=== PATIENT | female | born 1975 | race African-American/Black ===

== ENCOUNTER 2017-04-07 04:46 | Emergency (ER) | payer OTHER ==
[2017-04-07] MEDS ORDERED: ASPIRIN ONE (04:57)
[2017-04-07] MEDS ORDERED: ASPIRIN PO ONE (04:57)
[2017-04-07 04:59] VITALS: BMI 44.9
[2017-04-07] MEDS ORDERED: LOPRESSOR TAB 50 MG ONE (05:15)
[2017-04-07] MEDS ORDERED: LOPRESSOR TAB 25 MG PO ONE (05:17)
--- NOTE | 2017-04-07 05:21 | RAD ---
Chest, AP portable Indication: Chest pain Comparison: None Findings: Cardiac silhouette size is normal. There has been previous median sternotomy and CABG. AICD is noted. The lungs are essentially clear without overt edema, focal infiltrates, or large effusion. Impression: No acute chest process. Reported By:
--- NOTE | 2017-04-07 05:21 | DR.GENAD ---
HPI - PCP Primary Care Physician: HELLEN - Complaint/Symptoms Chief Complaint Doctors Comments: Chest pain while asleep. This was pressure type with radiation to the neck/L. shoulder. There was nausea, no diaphoresis. Initially, this was rated as a 9/10. She had taken S/L NTG x 2 at home. Currently rates C/P as a 6/10. Her previous cardiology w/u includes a stress test, cardiac cath and she is s/p CABG. Chief Complaint:: "MY CHEST STARTED HURTING AROUND 12 TONIGHT AND IT HASN'T GONE AWAY" Self Treatment fo Chief Complaint: 2 NITRO SUBLING - Nurses notes reviewed Nurses Notes Review: Yes - Source History Provided: Patient - Mode of Arrival Mode of Arrival: Wheelchair - Timing Onset of Chief Complaint: 04/07/17 Came on: Gradually - Modifying Factors Worsens:: none Improves:: none PMH - PMH Past Medical History: Yes Past Medical History: Angina, Coronary Artery Disease, Hypertension Past Surgical History: Yes Surgical History: CABG/Valve Surgery, Hysterectomy Past Surgical History Comment: PACEMAKER/DIFIB - Family History History of Family Medical Conditions: Yes Family Medical History: Diabetes Mellitus, Cancer, [place], Coronary Artery Disease, Heart Failure, Sudden Cardiac , Hypertension - Social History Does patient currently use any type of tobacco product: Yes Have you used tobacco products in the last 12 months: Yes Type of Tobacco Use: Cigarettes Does any household member use tobacco: No Alcohol Use: None Do you use any recreational Drugs:: No Lives With: Spouse Lives Where: Home - infectious screening In the last 2 months have you had wt loss of >10#?: NO Have you had fever, night sweats or hemotysis?: No Have you traveled outside the country in the last 6 months?: No Isolation: Standard ROS - Review of Systems Constitutional: No Symptoms Reported Eyes: No Symptoms Reported ENTM: No Symptoms Reported Respiratoy: No Symptoms Reported Cardiovascular: Chest Pain Gastrointestinal/Abdominal: Nausea Genitourinary: No Symptoms Reported Neurological: No Symptoms Reported Musculoskeletal: No Symptoms Reported Integumentary: No Symptoms Reported Hematologic/Lymphatic: No Symptoms Reported Endocrine: No Symptoms Reported Psychiatric: No Symptoms Reported All Other Systems: Reviewed and Negative PE - Vital Signs Vitals: Temperature 98.1 F Pulse Rate [Left Brachial] 61 Pulse Rate 69 Respiratory Rate 21 Blood Pressure [Left Arm] 137/70 Blood Pressure 139/68 O2 Sat by Pulse Oximetry 96 - General Limitations: No Limitations General Appearance: Alert, In No Apparent Distress - Head Head Exam: Normal Inspection, Atraumatic - Eyes Eye exam: Normal Appearance, PERRL, EOMI - ENT ENT Exam: Normal Exam, Normal Oropharynx, Normal External Ear Exam, Mucous Membranes Moist, TM's Normal Bilaterally - Neck Neck Exam: Normal Inspection, Full ROM, Trachea Midline - Chest Chest Inspection: Normal Inspection, Symmetric Chest Wall Rise - Respiratory Respiratory Exam: Normal Lung Sounds Bilat - Cardiovascular Cardiovascular Exam: Regular Rate, Normal Rhythm, +S1, +S2 - Abdominal Exam Abdominal Exam: Normal Inspection, Normal Bowel Sounds, Soft - Extremities Extremities Exam: Normal Inspection, Full ROM - Back Back Exam: Normal Inspection - Neurologic Neurological Exam: Alert, Oriented X3, CN II-XII Intact - Psychiatric Psychiatric Exam: Normal Affect, Normal Mood - Skin Skin Exam: Warm, Dry, Intact, Normal Color Course - Reevaluation 1st: Unchanged 2nd: Unchanged - Education/Counseling Education/Counseling: Patient, Family, Education Educated On: Treatment, Diagnosis, Prognosis, Needs for Follow Up ROR - Labs Reviewed Result Diagrams: 04/07/17 05:09 04/07/17 05:09 Laboratory: WBC 10.9 X10^3/uL (3.6-10.0) H 04/07/17 05:09 RBC 3.90 X10^6/uL (3.5-5.4) 04/07/17 05:09 Hgb 12.7 g/dL (12.0-16.0) 04/07/17 05:09 Hct 37.0 % (36.0-47.0) 04/07/17 05:09 MCV 94.8 fL (80.0-100.0) 04/07/17 05:09 MCH 32.5 pg (27.0-34.0) 04/07/17 05:09 MCHC 34.3 g/dL (33.0-35.0) 04/07/17 05:09 RDW 12.5 % (11.6-16.5) 04/07/17 05:09 Plt Count 182 X10^3/uL (150.0-450.0) 04/07/17 05:09 MPV 9.7 fL (7.4-11.0) 04/07/17 05:09 Neut % 52.1 % (42.0-75.0) 04/07/17 05:09 Lymph % 40.6 % (21.0-51.0) 04/07/17 05:09 [place] % 4.3 % (0.0-13.0) 04/07/17 05:09 Eos % 2.6 % (0.9-2.9) 04/07/17 05:09 Baso % 0.4 % (0.2-1.0) 04/07/17 05:09 Neut # 5.7 x10^3/uL (2.2-4.8) H 04/07/17 05:09 Lymph # 4.4 X10^3/uL (1.3-2.9) H 04/07/17 05:09 Frontier # 0.5 x10^3/uL (0.3-0.8) 04/07/17 05:09 Eos # 0.3 x10^3/uL (0.0-0.2) H 04/07/17 05:09 Baso # 0.0 X10^3/uL (0.0-0.1) 04/07/17 05:09 Absolute Nucleated RBC 0.1 /100WBC 04/07/17 05:09 INR Target Range - 04/07/17 05:09 INR 1.00 (0.8-1.3) 04/07/17 05:09 PTT 25.8 SECONDS (22.9-36.5) 04/07/17 05:09 PTT Comment - 04/07/17 05:09 D-Dimer < 100 ng/mL (0-400) 04/07/17 05:09 Sodium 142 mmol/L (136-145) 04/07/17 05:09 Corrected Sodium 142 mmol/L (136-145) 04/07/17 05:09 Potassium 3.4 mmol/L (3.5-5.1) L 04/07/17 05:09 Chloride 107 mmol/L (98-107) 04/07/17 05:09 Carbon Dioxide 27.2 mmol/L (21-32) 04/07/17 05:09 BUN 7 mg/dL (7-18) 04/07/17 05:09 Creatinine 0.84 mg/dL (0.55-1.02) 04/07/17 05:09 Est GFR (MDRD) Af Amer > 60 (>60) 04/07/17 05:09 Est GFR (MDRD) Non-Af > 60 (>60) 04/07/17 05:09 Glucose 118 mg/dL (65-99) H 04/07/17 05:09 Calcium 8.3 mg/dL (8.5-10.1) L 04/07/17 05:09 Corrected Calcium 8.9 mg/dL (8.5-10.1) 04/07/17 05:09 Total Bilirubin 0.20 mg/dL (0.2-1.0) 04/07/17 05:09 AST 21 Units/L (15-37) 04/07/17 05:09 ALT 24 Units/L (12-78) 04/07/17 05:09 Alkaline Phosphatase 58 Units/L (46-116) 04/07/17 05:09 Creatine Kinase 500 Units/L (26-192) H 04/07/17 05:09 CK-MB (CK-2) 1.9 ng/mL (0-4.0) 04/07/17 05:09 CK/CKMB % Calc 0.4 % (<4) 04/07/17 05:09 Troponin I < 0.02 ng/mL (0-1.5) 04/07/17 05:09 Total Protein 7.0 g/dL (6.4-8.2) 04/07/17 05:09 Albumin 3.2 g/dL (3.4-5.0) L 04/07/17 05:09 Globulin 3.8 g/dL (2.5-4.5) 04/07/17 05:09 Albumin/Globulin Ratio 0.8 Ratio (1.1-2.1) L 04/07/17 05:09 Triglycerides 48 mg/dL (0-150) 04/07/17 05:09 Cholesterol 188 mg/dL (0-200) 04/07/17 05:09 LDL Cholesterol, Calc 133 mg/dL (0-100) H 04/07/17 05:09 HDL Cholesterol 45 mg/dL (40-60) 04/07/17 05:09 Cholesterol/HDL Ratio 4.2 (0.0-5.0) 04/07/17 05:09 - XRAY XRAY Interpreted by: Self XRAY Findings: NAD - EKG Rate: 72 [place]: Normal Rhythm: NSR Block: None Hypertrophy: LVH ST: Normal - Diagnosis Discharge Problem: Chest pain - Discharge Plan Condition: Stable - Follow ups/Referrals Follow ups/Referrals: JAY MACEDO [Primary Care Provider] - 3 days - Instructions
[2017-04-07 05:23] LABS: BASOPHILS % (AUTO) 0.4 % (0.2-1.0); EOSINOPHILS # (AUTO) 0.3 x10^3/uL (0.0-0.2); EOSINOPHILS % (AUTO) 2.6 % (0.9-2.9); HEMOGLOBIN 12.7 g/dL (12.0-16.0); LYMPHOCYTES # (AUTO) 4.4 X10^3/uL (1.3-2.9); LYMPHOCYTES % (AUTO) 40.6 % (21.0-51.0); MEAN CORPUSCULAR HEMOGLOBIN 32.5 pg (27.0-34.0); MEAN CORPUSCULAR HGB CONC 34.3 g/dL (33.0-35.0); MEAN CORPUSCULAR VOLUME 94.8 fL (80.0-100.0); MEAN PLATELET VOLUME 9.7 fL (7.4-11.0); MONOCYTES # (AUTO) 0.5 x10^3/uL (0.3-0.8); MONOCYTES % (AUTO) 4.3 % (0.0-13.0); NEUTROPHILS # (AUTO) 5.7 x10^3/uL (2.2-4.8); NEUTROPHILS % (AUTO) 52.1 % (42.0-75.0); PLATELET COUNT 182 X10^3/uL (150.0-450.0); RED CELL DISTRIBUTION WIDTH 12.5 % (11.6-16.5); WHITE BLOOD COUNT 10.9 X10^3/uL (3.6-10.0)
[2017-04-07] MEDS ORDERED: MORPHINE SULFATE INJ 2 MG INJ ONE (05:30)
[2017-04-07] MEDS ORDERED: MORPHINE SULFATE INJ 2 MG INJ IVP ONE (05:30)
[2017-04-07] MEDS ORDERED: NITROGLYCERIN IV PREMIX 50 MG 50 MG/250 ML BAG IV PRN (05:32)
[2017-04-07 05:35] LABS: BLOOD UREA NITROGEN 7 mg/dL (7-18); CALCIUM 8.3 mg/dL (8.5-10.1); CARBON DIOXIDE 27.2 mmol/L (21-32); CHLORIDE 107 mmol/L (98-107); COR NA(FOR HYPERGLY) 142 mmol/L (136-145); CREATININE 0.84 mg/dL (0.55-1.02); SODIUM 142 mmol/L (136-145); TROPONIN I < 0.02 ng/mL (0-1.5); eGFR BLACK RACES > 60 (>60); eGFR NON BLACK RACES > 60 (>60)
[2017-04-07 05:40] LABS: ALANINE AMINOTRANSFERASE 24 Units/L (12-78); ALBUMIN 3.2 g/dL (3.4-5.0); ALKALINE PHOSPHATASE 58 Units/L (46-116); ASPARTATE AMINO TRANSFERASE 21 Units/L (15-37); CKMB % 0.4 % (<4); COR CA(FOR HYPOALB) 8.9 mg/dL (8.5-10.1); CREATINE KINASE 500 Units/L (26-192); CREATINE KINASE MB 1.9 ng/mL (0-4.0)
[2017-04-07] MEDS ORDERED: LOVENOX INJ 120 MG SYR SC ONE ×2 (05:40→05:43)
[2017-04-07] MEDS ORDERED: NITROGLYCERIN IV PREMIX 50 MG 50 MG/250 ML BAG IV ONE (05:43)
[2017-04-07] MEDS ORDERED: NS 1000 ML 1,000 ML ONE (05:43)
[2017-04-07 05:52] LABS: CHOL/HDL RATIO 4.2 (0.0-5.0)
[2017-04-07 08:06] VITALS: BP 140/69
== END 2017-04-07 08:06 | disposition short-term general hospital (02) ==
LOC: ER 04:46
DX: R07.89 Other chest pain (principal); R94.31 Abnormal electrocardiogram [ECG] [EKG]
CPT/HCPCS: 36415; 71045; 80053; 80061; 82550; 82553; 84484; 85025; 85378; 85610; 85730; 93005; 93010; 96365; 96372; 96374; 96375; 99284; 99285; A4222; J1650; J2270